=== PATIENT | male | born 1965 | race Caucasian/White ===

== ENCOUNTER 2022-09-20 13:29 | Emergency (ER) | payer BC ==
[~2022-09-20 13:29] MED LIST: Sodium Chloride 0.9% 1,000 ML BAG ONE
[2022-09-20] MEDS ORDERED: diphenhydrAMINE 50 MG/ML VIAL ONE (13:48)
[2022-09-20] MEDS ORDERED: Famotidine/PF 20 mg/2ml Vial ONE (13:48)
[2022-09-20] MEDS ORDERED: Loratadine 10 MG TAB PO SCH (14:00)
[2022-09-20] MEDS ORDERED: Montelukast Sodium 10 mg Tablet PO SCH (14:00)
[2022-09-20] MEDS ORDERED: methylPREDNISolone Sod Succ/PF 125 MG/2 ML VIAL ONE (14:12)
[2022-09-20] MEDS ORDERED: Dexamethasone 4 MG TAB ONE (15:50)
[2022-09-20] MEDS ORDERED: Clindamycin/D5W 600 mg/50 ml Premix Bag ONE (16:30)
== END 2022-09-20 17:34 | disposition home or self-care (01) ==
LOC: MADERS 13:29
DX: T78.1XXA Other adverse food reactions, not elsewhere classified, initial encounter (principal); K12.2 Cellulitis and abscess of mouth; I10 Essential (primary) hypertension; E78.2 Mixed hyperlipidemia
CPT/HCPCS: 96365; 96375; J1200; J2930; J3490; J7050; J8540; S0028